=== PATIENT | male | born 1975 | race Caucasian/White ===

== ENCOUNTER 2017-07-01 05:40 | Day surgery (SDC) | payer OTHER ==
[2017-06-30 09:32] LABS: PARTIAL THROMBOPLASTIN TIME 30 SECONDS (22-32); PROTHROMBIN TIME 10.5 SECONDS (9.0-12.0)
[2017-06-30 09:40] LABS: BASOPHILS % (AUTO) 0.5 % (0-1); EOSINOPHILS # (AUTO) 0.2 X10'3 (0-0.9); EOSINOPHILS % (AUTO) 3.1 % (0-6); HEMATOCRIT 45.7 % (42.0-52.0); HEMOGLOBIN 15.6 g/dl (14.0-17.9); LYMPHOCYTES % (AUTO) 25.6 % (21-51); MEAN CORPUSCULAR HEMOGLOBIN 29.4 PG (27.0-31.0); MEAN CORPUSCULAR HGB CONC 34.1 % (33.0-36.5); MEAN PLATELET VOLUME 8.6 FL (7.4-10.4); MONOCYTES # (AUTO) 0.6 X10'3 (0-0.9); MONOCYTES % (AUTO) 7.8 % (2-12); NEUTROPHILS # (AUTO) 4.8 X10'3 (1.8-7.7); PLATELET COUNT 249 X10'3 (140-440); RED BLOOD COUNT 5.31 X10'6 (4.70-6.10); RED CELL DISTRIBUTION WIDTH 14.3 % (11.5-14.5); WHITE BLOOD COUNT 7.7 X10'3 (4.5-11.0)
[2017-06-30 10:03] LABS: ALBUMIN 3.9 G/DL (3.4-5.0); ANION GAP 9 (8-16); BLOOD UREA NITROGEN 17 MG/DL (7-18); BUN/CREATININE RATIO 14.2 (5.4-32.0); CHLORIDE 106 MMOL/L (99-107); GLUCOSE 97 MG/DL (70-104); POTASSIUM 4.2 MMOL/L (3.5-5.1); SODIUM 139 MMOL/L (135-145); TOTAL CARBON DIOXIDE 24.5 MMOL/L (24-32); eGFR 67 ML/MIN
[~2017-07-01] VITALS: Ht 195.6 cm; Wt 155.3 kg
[2017-07-01] VITALS (10 sets, daily range): BP systolic 113–138; BP diastolic 64–92
[2017-07-01] MEDS ORDERED: LORazepam 0.5 MG tablet PO ONE (06:00)
[2017-07-01] MEDS ORDERED: diphenhydrAMINE 25mg capsule PO ONE (06:00)
[2017-07-01] MEDS ORDERED: normal saline 1000ml 1,000 ML IV ONE (06:00)
[2017-07-01] MEDS ORDERED: LIDOcaine/PRILOcaine 5gm cream TP ONE ×2 (06:15→06:30)
[2017-07-01] MEDS ORDERED: normal saline 1000ml 1,000 ML IV SCH (06:15)
[2017-07-01] MEDS ORDERED: BUPR300T53 PO (06:34)
[2017-07-01] MEDS ORDERED: ATOR40TA PO (06:34)
[2017-07-01] MEDS ORDERED: ESCI20TA PO (06:34)
[2017-07-01] MEDS ORDERED: ASPI81TA52 PO (06:34)
[2017-07-01] MEDS ORDERED: ARIP10TA15 PO (06:34)
[2017-07-01] MEDS ORDERED: nitroGLYCERIN-Tridil 50MG/D5W 250 ML IV ONE (07:37)
[2017-07-01] MEDS ORDERED: verapamil 2.5 mg/ml inj IV ONE (07:37)
[2017-07-01] MEDS ORDERED: midazolam 2 mg/2 ml injection ONE (07:37)
[2017-07-01] MEDS ORDERED: iohexol 350MG/ML 100ml bottle IV ONE (07:38)
[2017-07-01] MEDS ORDERED: heparin 1,000unit/ml 10ml vial 10 ML ONE (07:38)
[2017-07-01] MEDS ORDERED: fentaNYL/PF 50MCG/1 ML 2ML syringe ONE (07:38)
[2017-07-01] MEDS ORDERED: iohexol 350 MG/ML 50ML vial IV ONE (07:38)
[2017-07-01] MEDS ORDERED: LIDOcaine 1% 30ml vial 30 ML ONE (07:40)
[2017-07-01 09:51] LABS: ISTAT HGB ART 13.3 g/dl (14.0-18.0); ISTAT Hct ART 39 %PCV (42-52); ISTAT Hct MIX 40 %PCV (42-52); ISTAT O2 SATURATION ARTERIAL 98 % (95-98); ISTAT O2 SATURATION MIX VENOUS 76 % (60-80); ISTAT SOURCE ART; ISTAT SOURCE MIX
== END 2017-07-01 14:02 | disposition home or self-care (01) ==
LOC: SSTAY O 05:40
PROVIDERS: ATTEND Internal Medicine Cardiovascular Disease
DX: I25.10 Atherosclerotic heart disease of native coronary artery without angina pectoris (principal); E78.5 Hyperlipidemia, unspecified; E66.3 Overweight; G47.30 Sleep apnea, unspecified; F41.9 Anxiety disorder, unspecified; F32.9 Major depressive disorder, single episode, unspecified; I10 Essential (primary) hypertension; Z79.82 Long term (current) use of aspirin; Z98.52 Vasectomy status; Z98.890 Other specified postprocedural states; Z88.8 Allergy status to other drugs, medicaments and biological substances; Z68.41 Body mass index [BMI] 40.0-44.9, adult
CPT/HCPCS: 36415; 80048; 82803; 85014; 85025; 85610; 85730; 93005; 93460; 99152; 99153; A6257; A6258; A6402; C1769; J1644; J2250; J3010; J3490; J7030; Q0163; Q9967; 93458; A4620